=== PATIENT | female | born 1980 | race Asian ===

== ENCOUNTER 2017-01-24 01:55 | Inpatient (IN) | payer SELFPAY ==
[~2017-01-24] VITALS: Ht 160 cm; Wt 65.3 kg
[2017-01-24] MEDS: OXYTOCIN 20 UNITS/LR PREMIX 1,000 ML IV SCH ×3 (01:45→17:06)
[2017-01-24] MEDS ORDERED: LACTATED RINGERS 1,000 ML IV SCH (02:18)
[2017-01-24] MEDS ORDERED: IBUPROFEN 800 MG TAB PO PRN (02:20)
[2017-01-24 02:29] VITALS: BP 101/59
[2017-01-24 03:06] LABS: APPEARANCE,URINE SL CLOUDY (CLEAR); BILIRUBIN,URINE NEGATIVE (NEGATIVE); BLOOD, URINE NEGATIVE (NEGATIVE); COLOR,URINE YELLOW (YELLOW); LEUKOCYTE ESTERASE ,URINE NEGATIVE (NEGATIVE); NITRITE, URINE NEGATIVE (NEGATIVE); UGLUCOSE NEGATIVE (NEGATIVE)
[2017-01-24 03:07] LABS: BASOPHILS # (AUTO) 0.3 K/uL (0.00-0.22); BASOPHILS % (AUTO) 2.1 % (0.0-2.0); EOSINOPHILS # (AUTO) 0.2 K/uL (0-0.4); EOSINOPHILS % (AUTO) 1.9 % (0.0-4.0); HEMOGLOBIN 11.8 g/dL (12.0-16.0); LYMPHOCYTES % (AUTO) 23.3 % (20.5-51.1); MEAN CORPUSCULAR HEMOGLOBIN 31 pg (27-31); MEAN CORPUSCULAR HGB CONC 33 g/dL (33-37); MEAN CORPUSCULAR VOLUME 93 fL (80-94); MONOCYTES # (AUTO) 0.9 K/uL (0.8-1.0); MONOCYTES % (AUTO) 6.9 % (1.7-9.3); NEUTROPHILS # (AUTO) 8.4 K/uL (1.8-7.7); NEUTROPHILS % (AUTO) 65.8 % (42.2-75.2); PLATELET COUNT (AUTO) 260 K/uL (140-450); RED BLOOD CELL COUNT(AUTO) 3.88 MIL/uL (4.20-5.40); RED CELL DISTRIBUTION WIDTH 13.3 % (11.6-13.7); WHITE BLOOD COUNT (AUTO) 12.8 K/uL (4.8-10.8)
[2017-01-24 03:48] LABS: RBC,URINE 0-5 (RARE) /HPF (0-5); WBC,URINE 0-5 (RARE) /HPF (0-5)
[2017-01-24] MEDS ORDERED: CITRIC ACID/SODIUM CITRATE 30 ML UDC PO SCH (05:20)
[2017-01-24] MEDS ORDERED: ceFAZolin 1,000 MG VIAL ONE (05:24)
[2017-01-24] MEDS ORDERED: OXYTOCIN 10 UNITS/ML VIAL ONE (05:53)
[2017-01-24] MEDS ORDERED: TRIAMCINOLONE 10 MG/ML 5ML VIAL ONE (05:54)
[2017-01-24] MEDS ORDERED: ONDANSETRON 4 MG/2 ML VIAL ONE ×2 (05:56→06:20)
[2017-01-24] MEDS ORDERED: BUPIVACAINE-MPF 0.75% 10 ML VIAL INJ ONE (05:56)
[2017-01-24] MEDS ORDERED: ePHEDrine 50 MG/ML VIAL ONE (05:56)
[2017-01-24] MEDS ORDERED: ceFAZolin 1,000 MG VIAL IVP ONE (06:08)
[2017-01-24] MEDS ORDERED: MORPHINE PRES FREE 10 MG/10 ML AMP IV ONE (06:16)
[2017-01-24] MEDS ORDERED: fentaNYL 0.05 MG/ML VIAL ONE (06:16)
[2017-01-24] MEDS ORDERED: NALOXONE 0.4 MG/ML VIAL IVP PRN ×3 (06:35)
[2017-01-24] MEDS ORDERED: KETOROLAC 60 MG/2 ML VIAL IM PRN (06:35)
[2017-01-24] MEDS ORDERED: diphenhydrAMINE 50 MG/ML VIAL IVP PRN (06:35)
[2017-01-24] MEDS ORDERED: ONDANSETRON 4 MG/2 ML VIAL IVP PRN ×2 (06:35)
[2017-01-24] MEDS ORDERED: NALBUPHINE 10 MG/ML AMP IVP PRN (06:35)
[2017-01-24] MEDS ORDERED: OXYTOCIN 20 UNITS/LR PREMIX 1,000 ML IV ONE (07:09)
--- NOTE | 2017-01-24 08:07 | NUR ---
PATIENT HAS BEEN SCREENED AND CATEGORIZED LOW NUTRITION RISK. PATIENT WILL BE SEEN WITHIN 7 DAYS OF ADMISSION. 01/30/[address]
[2017-01-24] MEDS ORDERED: TEMAZEPAM 15 MG CAP PO PRN (09:20)
[2017-01-24] MEDS ORDERED: TRIMETHOBENZAMIDE 200 MG/2 ML SYR IM PRN (09:20)
[2017-01-24 10:36] LABS: RAPID PLASMA REAGIN NON-REACTIVE (Non Reactiv)
[2017-01-24] MEDS ORDERED: CALCIUM POLYCARBOPHIL 625 MG TAB PO SCH (13:00)
[2017-01-24] MEDS: BISACODYL 5 MG TABEC PO SCH (21:00)
[2017-01-25] MEDS ORDERED: oxyCODONE/APAP 5/325 MG 1 TAB TAB PO PRN (01:00)
[2017-01-25] MEDS ORDERED: TEMAZEPAM 15 MG CAP PO PRN (01:00)
[2017-01-25] MEDS ORDERED: HYDROcodone/APAP 5/325 MG 1 TAB TAB PO PRN ×2 (01:00)
[2017-01-25 06:08] LABS: HEMATOCRIT 32.7 % (36-48); HEMOGLOBIN 10.6 g/dL (12.0-16.0); MEAN CORPUSCULAR HEMOGLOBIN 30 pg (27-31); MEAN CORPUSCULAR HGB CONC 33 g/dL (33-37); MEAN CORPUSCULAR VOLUME 93 fL (80-94); PLATELET COUNT (AUTO) 254 K/uL (140-450); RED BLOOD CELL COUNT(AUTO) 3.51 MIL/uL (4.20-5.40); RED CELL DISTRIBUTION WIDTH 13.2 % (11.6-13.7); WHITE BLOOD COUNT (AUTO) 19.3 K/uL (4.8-10.8)
[2017-01-25 07:54] LABS: LYMPHOCYTES % (MANUAL) 6 % (20-46); MONOCYTES % (MANUAL) 6 % (5-12)
[2017-01-25] MEDS ORDERED: AMMONIA AROMATIC 1 INHL INH ONE (08:45)
[2017-01-25] MEDS: BISACODYL 5 MG TABEC PO SCH ×2 (09:27→21:39)
[2017-01-25] MEDS: IBUPROFEN 800 MG TAB PO PRN ×2 (10:21→21:41)
[2017-01-26] MEDS: BISACODYL 5 MG TABEC PO SCH ×2 (08:30→20:48)
[2017-01-26] MEDS: IBUPROFEN 800 MG TAB PO PRN (08:30)
[2017-01-27] MEDS: CEPHALEXIN 500 MG CAP PO SCH ×2 (00:02→06:03)
== END 2017-01-27 13:25 | disposition home or self-care (01) | DRG 766 ==
LOC: MLD 01:55 → MFCC 08:40
PROVIDERS: ADMIT Obstetrics & Gynecology; ATTEND Obstetrics & Gynecology
PROC: 10D00Z1 Extraction of Products of Conception, Low, Open Approach (ICD-10-PCS; principal; 2017-01-24 06:00)
DX: O34.211 Maternal care for low transverse scar from previous cesarean delivery (principal); O99.824 Streptococcus B carrier state complicating childbirth; O89.4 Spinal and epidural anesthesia-induced headache during the puerperium; O09.293 Supervision of pregnancy with other poor reproductive or obstetric history, third trimester; Z37.0 Single live birth; Z3A.39 39 weeks gestation of pregnancy; Z28.21 Immunization not carried out because of patient refusal
CPT/HCPCS: 36415; 81001; 85025; 86592; 86886; 86900; 86901; 87086; J0690; J2270; J2405; J2590; J3010; J3301; J3490; J7060; J7120